=== PATIENT | female | born 1965 | race Caucasian/White ===

== ENCOUNTER 2019-09-28 12:24 | Emergency (ER) | payer BC ==
[~2019-09-28] VITALS: Ht 162.6 cm; Wt 95.3 kg
[2019-09-28 12:40] VITALS: BP 163/79
== END 2019-09-28 14:03 | disposition home or self-care (01) ==
LOC: ED 12:24
DX: S62.625A Displaced fracture of middle phalanx of left ring finger, initial encounter for closed fracture (principal); I10 Essential (primary) hypertension; E11.9 Type 2 diabetes mellitus without complications; W22.8XXA Striking against or struck by other objects, initial encounter; Y93.89 Activity, other specified; Y92.89 Other specified places as the place of occurrence of the external cause; Y99.8 Other external cause status